=== PATIENT | female | born 1970 | race Caucasian/White ===

== ENCOUNTER 2016-09-12 04:02 | Emergency (ER) | payer BC, SELFPAY ==
[2016-09-12 06:29] LABS: HEMOGLOBIN 14.7 gm/dl (12.3-15.3); RED BLOOD COUNT 4.22 M/UL (4.00-5.10); WHITE BLOOD COUNT 16.8 K/UL (4.5-11.0)
[2016-09-12 06:49] LABS: BUN/CREATININE RATIO 9 (0-10)
== END 2016-09-12 07:00 | disposition home or self-care (01) ==
LOC: ER1 04:02
PROVIDERS: Physician Assistant
DX: I10 Essential (primary) hypertension (principal); F17.210 Nicotine dependence, cigarettes, uncomplicated; Z90.49 Acquired absence of other specified parts of digestive tract; Z88.2 Allergy status to sulfonamides; Z88.1 Allergy status to other antibiotic agents; Z88.5 Allergy status to narcotic agent; Z88.8 Allergy status to other drugs, medicaments and biological substances; Z79.899 Other long term (current) drug therapy
CPT/HCPCS: 36415; 71010; 80053; 82550; 82553; 83874; 84484; 85025; 93005; 99284

== ENCOUNTER 2020-08-09 11:54 | Emergency (ER) | payer OTHER ==
[~2020-08-09 11:54] MED LIST: ADVAIR 100-501 EACH INH; ASPIRIN 325MG325 MG PO; AUGMENTIN 875-1 EACH PO; BENTYL 20MG TAB20 MG PO; COLESTIPOL HCL1 GM PO; GABAPENTIN300 MG PO; LOPRESSOR 50 MG50 MG PO; LOSARTAN POTASS50 MG PO; NICOTINE PATCH1 EAC1 TD; SKELAXIN800 MG PO; TRAMADOL HCL50 MG PO; UNISOM25 MG PO; VISTARIL25 MG PO; [UNRECOGNIZED DRUG - OTHER]
== END 2020-08-09 15:27 | disposition left against medical advice (07) ==
LOC: ER1 11:54
DX: U07.1 COVID-19 (principal); Z53.21 Procedure and treatment not carried out due to patient leaving prior to being seen by health care provider

== ENCOUNTER → 2020-08-30 | Outpatient (CLI) | payer OTHER | LOC: RAD 17:11 | DX: R10.9 Unspecified abdominal pain (principal) | CPT/HCPCS: 74018 ==

== ENCOUNTER → 2020-11-08 | Outpatient (CLI) | payer OTHER | LOC: KOH-I 09:47 | DX: J32.9 Chronic sinusitis, unspecified (principal); R51.9 Headache, unspecified; J34.2 Deviated nasal septum | CPT/HCPCS: 70486 ==

== ENCOUNTER → 2020-11-13 | Outpatient (CLI) | payer OTHER | LOC: KOH-I 12:39 | DX: R10.9 Unspecified abdominal pain (principal); R14.3 Flatulence | CPT/HCPCS: 74018 ==

== ENCOUNTER → 2020-12-04 | Outpatient (CLI) | payer OTHER ==
[2020-12-04 17:13] LABS: BUN/CREATININE RATIO 11 (0-10)
== END ==
LOC: LAB 15:23
PROVIDERS: Emergency Medicine
DX: E27.40 Unspecified adrenocortical insufficiency (principal); Z79.899 Other long term (current) drug therapy
CPT/HCPCS: 36415; 80053; 84439; 84443

== ENCOUNTER → 2021-04-26 | Outpatient (CLI) | payer OTHER | LOC: KOH-I 13:18 | DX: J44.9 Chronic obstructive pulmonary disease, unspecified (principal) | CPT/HCPCS: 71046 ==

== ENCOUNTER → 2021-06-04 | Outpatient (CLI) | payer OTHER ==
[2021-06-04 10:09] LABS: HEMOGLOBIN 14.6 gm/dl (12.3-15.3); RED BLOOD COUNT 4.29 M/UL (4.00-5.10); WHITE BLOOD COUNT 11.4 K/UL (4.5-11.0)
[2021-06-04 10:36] LABS: BUN/CREATININE RATIO 10 (0-10)
== END ==
LOC: LAB 09:18
PROVIDERS: Internal Medicine
DX: E27.40 Unspecified adrenocortical insufficiency (principal); Z79.899 Other long term (current) drug therapy; J44.9 Chronic obstructive pulmonary disease, unspecified; I10 Essential (primary) hypertension; E55.9 Vitamin D deficiency, unspecified; E53.8 Deficiency of other specified B group vitamins; E78.5 Hyperlipidemia, unspecified; R53.83 Other fatigue
CPT/HCPCS: 36415; 80053; 80061; 82607; 82746; 83036; 84439; 84443; 85025

== ENCOUNTER → 2021-08-07 | Outpatient (CLI) | payer OTHER | LOC: RAD 10:38 | DX: R59.1 Generalized enlarged lymph nodes (principal) | CPT/HCPCS: 71046 ==

== ENCOUNTER → 2021-08-10 | Outpatient (CLI) | payer OTHER | LOC: KOH-I 08-09 13:00 | DX: R59.0 Localized enlarged lymph nodes (principal) | CPT/HCPCS: 76536 ==

== ENCOUNTER → 2021-09-17 | Outpatient (CLI) | payer OTHER | LOC: RAD 18:16 | DX: M25.512 Pain in left shoulder (principal); M89.8X8 Other specified disorders of bone, other site | CPT/HCPCS: 73000; 73030 ==